=== PATIENT | female | born 1995 | race Caucasian/White ===

== ENCOUNTER 2017-11-03 18:35 | Emergency (ER) | payer MEDICAID ==
--- NOTE | 2017-11-03 20:19 | EDM.PDOC ---
ED HPI GENERAL MEDICAL PROBLEM - General Chief Complaint: Genitourinary Problem Stated Complaint: POSS UTI/BURNING & PAIN Time Seen by Provider: 11/03/17 20:00 Source of Information: Reports: Patient History Limitations: Reports: No Limitations - History of Present Illness INITIAL COMMENTS - FREE TEXT/NARRATIVE: Patient is a 22-year-old female presents ED complaining of painful urination, increased frequency, decrease amount that started approximately 3 days ago. Patient states they attempted to have sexual intercourse and had increasing pain. Questions this is not the culprit for her UTI. She has no history of fever , chills, nausea vomiting, recurrent UTIs, abnormal vaginal discharge, or any additional complaints. Patient recently had a baby approximately one month ago. Patient just recently stopped bleeding from delivery. Pelvic Pain Score (Numeric/FACES): 4 - Related Data Allergies Allergy/AdvReac Type Severity Reaction Status Date / Time No Known Allergies Allergy Verified 11/03/17 19:18 Home Meds: Home Meds Nitrofurantoin Monohyd/M-Cryst [Macrobid 100 mg Capsule] 100 mg PO BID #10 capsule 11/03/17 [Rx] Past Medical History - Past Health History Medical/Surgical History: Denies Medical/Surgical History Social & Family History - Tobacco Use Smoking Status *Q: Never Smoker - Recreational Drug Use Recreational Drug Use: No ED ROS GENERAL - Review of Systems Review Of Systems: ROS reveals no pertinent complaints other than HPI. ED EXAM, RENAL/ - Physical Exam Exam: See Below Exam Limited By: No Limitations General Appearance: Alert, WD/WN, No Apparent Distress Ears: Hearing Grossly Normal Nose: Normal Inspection Throat/Mouth: Normal Voice, No Airway Compromise Neck: Normal Inspection, Supple Respiratory/Chest: No Respiratory Distress, Lungs Clear, Normal Breath Sounds, Chest Non-Tender Cardiovascular: Normal Peripheral Pulses, Regular Rate, Rhythm GI/Abdominal: Normal Bowel Sounds, Soft, No Organomegaly, No Distention, Tender (Mild suprapubic tenderness.) Back Exam: Normal Inspection. No: CVA Tenderness (L), CVA Tenderness (R) Neurological: Alert, Oriented, CN II-XII Intact, Normal Cognition, No Motor/ Sensory Deficits Psychiatric: Normal Affect, Normal Mood Skin Exam: Warm, Dry, Intact, Normal Color, No Rash Course - Vital Signs Last Recorded V/S: Last Vital Signs Temp 97.8 F 11/03/17 19:19 Pulse 64 11/03/17 19:19 Resp 15 11/03/17 19:19 BP 121/89 11/03/17 19:19 Pulse Ox 100 11/03/17 19:19 - Orders/Labs/Meds Orders: Active Orders 24 hr Category Date Time Status CULTURE URINE [RM] Stat Lab 11/03/17 19:14 Results Labs: Laboratory Tests 11/03/17 11/03/17 Range/Units 19:14 19:14 Urine Color Yellow (Yellow) Urine Appearance Cloudy H (Clear) Urine pH 6.0 (5.0-8.0) Ur Specific [place] > or = 1.030 (1.005-1.030) Urine Protein 2+ H (Negative) Urine Glucose (UA) Negative (Negative) Urine Ketones Negative (Negative) Urine Occult Blood 2+ H (Negative) Urine Nitrite Negative (Negative) Urine Bilirubin Negative (Negative) Urine Urobilinogen 0.2 (0.2-1.0) Ur Leukocyte Esterase 1+ H (Negative) Urine RBC 5-10 H (0-5) /hpf Urine WBC >100 H (0-5) /hpf Ur Epithelial Cells 0-5 (0-5) /hpf Urine Bacteria Moderate H (FEW) /hpf Urine Mucus Few (FEW) /hpf Urine HCG, Qual Negative (NEGATIVE) Meds: Medications Discontinued Medications Generic Name Dose Route Start Last Admin Trade Name Freq PRN Reason Stop Dose Admin Nitrofurantoin Macrocrystals 100 mg 11/03/17 21:25 11/03/17 21:29 Macrobid PO 11/03/17 21:26 100 mg ONETIME ONE Administration - Re-Assessments/Exams Free Text/Narrative Re-Assessment/Exam: Patient has symptoms concerning for UTI. UA has been obtained results are pending. 11/03/17 21:25 UA came back positive for 2+ protein, occult blood 2+, leukocyte Estrace one plus, urine rbc's 5-10, urine wbc's greater than 100, urine bacteria moderate. Urine culture ordered. Ordered Macrobid 100 mg by mouth. Departure - Departure Time of Disposition: 21:26 Disposition: Home, Self-Care 01 Condition: Good Clinical Impression: UTI, Urinary tract infectious disease - Discharge Information Prescriptions: Nitrofurantoin Monohyd/M-Cryst [Macrobid 100 mg Capsule] 100 mg PO BID #10 capsule Instructions: Urinary Tract Infection, Adult, [id number] Referrals: PCP,None [Primary Care Provider] - Forms: ED Department Discharge Additional Instructions: You have a UTI. Urine culture was obtained. If the bacteria growing is not susceptible to the antibiotic you are currently taking you will be notified. Please follow up with your PCP 2 days after completing the antibiotic to ensure resolution of the infection. Please return back to the ED if you develop any new or worsening symptoms. - My Orders Last 24 Hours: My Active Orders 11/03/17 19:14 CULTURE URINE [RM] Stat - Assessment/Plan Last 24 Hours: My Active Orders 11/03/17 19:14 CULTURE URINE [RM] Stat
[2017-11-03] MEDS ORDERED: Nitrofurantoin Monohydrate/Macrocrystalline 100 MG Cap PO ONE (21:25)
== END 2017-11-03 21:36 | disposition home or self-care (01) ==
LOC: JD.ED 18:35
DX: N39.0 Urinary tract infection, site not specified (principal)
CPT/HCPCS: 81001; 81025; 87086; 87088; 87186; 99283; A9270